=== PATIENT | female | born 1955 ===

== ENCOUNTER 2022-03-10 06:36 | Day surgery (SDC) | payer BC ==
[~2022-03-10 06:36] MED LIST: Lactated Ringers 1,000 ML IV SCH; Sodium Chloride 0.9% 10 ML Syringe FLUSH PRN
[2022-03-10] MEDS ORDERED: Neostigmine Methylsulfate 10 MG/10 ML MDV IVPUSH ONE (06:37)
[2022-03-10] MEDS ORDERED: fentaNYL 100 MCG/2 ML SDV IV ONE (06:37)
[2022-03-10] MEDS ORDERED: Sugammadex Sodium 200 MG/2 ML VIAL IV ONE (06:37)
[2022-03-10] MEDS ORDERED: Ondansetron 4 MG/2 ML SDV IVPUSH ONE (06:37)
[2022-03-10] MEDS ORDERED: Bupivacaine 0.5%/EPINEPHrine 1:200,000 10 ML SDV INJECT ONE ×2 (06:37→08:34)
[2022-03-10] MEDS ORDERED: Dexamethasone 4 MG/ML 5 ML MDV IVPUSH ONE (06:37)
[2022-03-10] MEDS ORDERED: Succinylcholine 200 MG/10 ML MDV IV ONE (06:37)
[2022-03-10] MEDS ORDERED: Albuterol 0.083% 2.5 MG/3 ML Neb Soln INH ONE (06:37)
[2022-03-10] MEDS ORDERED: Propofol 200 MG/20 ML SDV IV ONE (06:37)
[2022-03-10] MEDS ORDERED: Midazolam 1 MG/ML 2 ML SDV IV ONE (06:37)
[2022-03-10] MEDS ORDERED: Glycopyrrolate 0.2 MG/ML 5 ML MDV IV ONE (06:37)
[2022-03-10] MEDS ORDERED: Lactated Ringers 1,000 ML IV ONE (06:37)
[2022-03-10] MEDS ORDERED: Acetaminophen 500 MG Tab PO ONE (08:34)
[2022-03-10] MEDS ORDERED: Gabapentin 300 MG Cap PO ONE (08:36)
[2022-03-10] MEDS ORDERED: Flumazenil 0.1 MG/ML 5 ML MDV IV ONE (10:25)
[2022-03-10] MEDS ORDERED: Ketorolac 30 MG/ML SDV IVPUSH ONE (10:35)
== END 2022-03-10 12:30 | disposition home or self-care (01) ==
LOC: FB.SDS 06:36
PROVIDERS: ATTEND Surgery
DX: K80.10 Calculus of gallbladder with chronic cholecystitis without obstruction (principal); K82.8 Other specified diseases of gallbladder; I10 Essential (primary) hypertension; E78.5 Hyperlipidemia, unspecified; E11.9 Type 2 diabetes mellitus without complications; M19.90 Unspecified osteoarthritis, unspecified site; J44.9 Chronic obstructive pulmonary disease, unspecified; F17.210 Nicotine dependence, cigarettes, uncomplicated; Z79.899 Other long term (current) drug therapy; Z79.84 Long term (current) use of oral hypoglycemic drugs; Z91.012 Allergy to eggs
CPT/HCPCS: 00790; 47562; 82947; 88304; A9270; J0330; J0690; J1100; J1885; J2250; J2405; J2704; J2710; J3010; J3490; J7120